=== PATIENT | female | born 1930 | race Caucasian/White ===

== ENCOUNTER 2017-04-27 18:18 | Emergency (ER) | payer OTHER ==
[~2017-04-27] VITALS: Ht 129.5 cm; Wt 59.4 kg
[2017-04-27] MEDS ORDERED: SYNTHROID75 MCG (19:15)
== END 2017-04-27 22:50 | disposition home or self-care (01) ==
LOC: ER 18:18
DX: J09.X2 Influenza due to identified novel influenza A virus with other respiratory manifestations (principal)

== ENCOUNTER 2017-10-14 14:54 | Emergency (ER) | payer OTHER ==
[~2017-10-14] VITALS: Ht 157.5 cm; Wt 60.3 kg
[~2017-10-14 14:54] MED LIST: SYNTHROID75 MCG
[2017-10-14] MEDS ORDERED: HYDROCHLOROTHIA25 MG (15:19)
[2017-10-14] MEDS ORDERED: ZOCOR40 MG (15:20)
[2017-10-14] MEDS ORDERED: NABUMETONE750 MG (15:20)
== END 2017-10-14 18:15 | disposition home or self-care (01) ==
LOC: ER 14:54
DX: R42 Dizziness and giddiness (principal)

== ENCOUNTER 2021-01-25 00:55 | Emergency (ER) | payer OTHER ==
[~2021-01-25] VITALS: Ht 142.2 cm; Wt 61.2 kg
[~2021-01-25 00:55] MED LIST changes: +HYDROCHLOROTHIA25 MG; +NABUMETONE750 MG; +ZOCOR40 MG
[2021-01-25] MEDS ORDERED: LEVSIN0.125 MG PO (05:12)
[2021-01-25] MEDS ORDERED: PROTONIX20 MG PO (05:12)
[2021-01-25] MEDS ORDERED: INTESTINEX680 M2 PO (05:12)
[2021-01-25] MEDS ORDERED: PEPCID AC20 MG PO (05:12)
== END 2021-01-25 05:51 | disposition home or self-care (01) ==
LOC: ER 00:55
DX: R19.7 Diarrhea, unspecified (principal)

== ENCOUNTER 2021-08-16 00:22 | Emergency (ER) | payer OTHER ==
[~2021-08-16] VITALS: Ht 149.9 cm; Wt 61.7 kg
[~2021-08-16 00:22] MED LIST changes: +INTESTINEX680 M2 PO; +LEVSIN0.125 MG PO; +PEPCID AC20 MG PO; +PROTONIX20 MG PO
[2021-08-16] MEDS ORDERED: METRONIDAZOLE500 MG PO (04:57)
[2021-08-16] MEDS ORDERED: PEPCID AC20 MG PO (04:57)
[2021-08-16] MEDS ORDERED: LEVSIN/SL0.125 MG PO (04:57)
[2021-08-16] MEDS ORDERED: CIPRO500 MG PO (04:57)
[2021-08-16] MEDS ORDERED: INTESTINEX680 M1 PO (04:57)
== END 2021-08-16 06:11 | disposition home or self-care (01) ==
LOC: ER 00:22
DX: R10.13 Epigastric pain (principal); R11.2 Nausea with vomiting, unspecified; R19.7 Diarrhea, unspecified

== ENCOUNTER 2021-08-21 13:43 | Emergency (ER) | payer OTHER ==
[~2021-08-21] VITALS: Ht 147.3 cm; Wt 49.9 kg
[~2021-08-21 13:43] MED LIST changes: +CIPRO500 MG PO; +INTESTINEX680 M1 PO; +LEVSIN/SL0.125 MG PO; +METRONIDAZOLE500 MG PO
== END 2021-08-21 19:28 | disposition home or self-care (01) ==
LOC: ER 13:43
DX: R53.1 Weakness (principal); E78.00 Pure hypercholesterolemia, unspecified

== ENCOUNTER 2022-02-28 19:19 | Emergency (ER) | payer OTHER ==
[~2022-02-28] VITALS: Ht 139.7 cm; Wt 58.5 kg
[2022-02-28] MEDS ORDERED: PEPCID20 MG PO (22:38)
[2022-02-28] MEDS ORDERED: ZITHROMAX200 MG PO (22:38)
== END 2022-02-28 22:44 | disposition home or self-care (01) ==
LOC: ER 19:19
DX: K29.70 Gastritis, unspecified, without bleeding (principal); E03.9 Hypothyroidism, unspecified; Z20.822 Contact with and (suspected) exposure to COVID-19

== ENCOUNTER 2022-08-26 15:11 | Emergency (ER) | payer OTHER ==
[~2022-08-26] VITALS: Ht 147.3 cm; Wt 61.2 kg
[~2022-08-26 15:11] MED LIST changes: +PEPCID20 MG PO; +ZITHROMAX200 MG PO
== END 2022-08-26 18:54 | disposition home or self-care (01) ==
LOC: ER 15:11
DX: J37.0 Chronic laryngitis (principal); Z20.822 Contact with and (suspected) exposure to COVID-19